=== PATIENT | male | born 1985 | race Caucasian/White ===

== ENCOUNTER 2022-06-28 12:42 | Emergency (ER) | payer SELFPAY ==
[2022-06-28] MEDS ORDERED: methylPREDNISolone Sodium Succinate 125 MG/2 ML SDV IM ONE (14:07)
[2022-06-28] MEDS ORDERED: HYDROmorphone 1 MG/ML Syringe IM ONE (14:07)
[2022-06-28] MEDS ORDERED: Cyclobenzaprine 10 MG Tab PO ONE (14:07)
== END 2022-06-28 15:28 | disposition home or self-care (01) ==
LOC: JD.ED 12:42
DX: M54.41 Lumbago with sciatica, right side (principal); Z79.899 Other long term (current) drug therapy
CPT/HCPCS: 96372; 99283; A9270; J1170; J2930